=== PATIENT | female | born 1980 | race Caucasian/White ===

== ENCOUNTER 2018-10-16 02:35 | Emergency (ER) | payer OTHER ==
[2018-10-16] MEDS ORDERED: ONDANSETRON HCL INJ/PF 4 MG/2 ML SDV IV ONE (02:38)
[2018-10-16] MEDS ORDERED: NORMAL SALINE 1000 ML 1,000 ML IV ONE (02:39)
--- NOTE | 2018-10-16 02:41 | ER Document Report ---
ED General - General Stated Complaint: ETOH Time Seen by Provider: 10/16/18 02:38 Cannot obtain history due to: Intoxicated, Altered mental status Notes: Patient is a 38-year-old female with a past medical history of lupus per the report of EMS who presents due to altered mental status in the setting of drinking and using marijuana tonight. EMS reports that the patient has been responsive but has not provided any real clear coherent history or speech. Apparently the patient herself contacted 911 for her who then apparently was arrested for trying to prevent EMS from caring for the . At time of presentation the patient is lying in the gurney, not speaking. Past Medical History - General Information source: Emergency Med Personnel Cannot obtain history due to: Intoxicated, Altered mental status - Social History Smoking Status: Unknown if Ever Smoked Frequency of alcohol use: Occasional Drug Abuse: Marijuana Lives with: Spouse/Significant other Family History: Reviewed & Not Pertinent Review of Systems - Review of Systems -: Yes ROS unobtainable due to patient's medical condition Physical Exam - Vital signs Vitals: Temp Pulse Resp BP Pulse Ox 97.9 F 97 18 107/91 H 100 10/16/18 02:35 10/16/18 02:35 10/16/18 02:35 10/16/18 02:35 10/16/18 02:35 Interpretation: Normal Notes: PHYSICAL EXAMINATION: GENERAL: Anxious, intoxicated but in no acute distress HEAD: Atraumatic, normocephalic. EYES: Pupils equal round and reactive to light, extraocular movements intact, sclera anicteric, conjunctiva are normal. ENT: nares patent, oropharynx clear without exudates. Moist mucous membranes. NECK: Normal range of motion, supple without lymphadenopathy LUNGS: Breath sounds clear to auscultation bilaterally and equal. No wheezes rales or rhonchi. HEART: Regular rate and rhythm without murmurs ABDOMEN: Soft, nontender, normoactive bowel sounds. No guarding, no rebound. No masses appreciated. EXTREMITIES: Normal range of motion, no pitting or edema. No cyanosis. NEUROLOGICAL: No focal neurological deficits. Moves all extremities spontaneously and on command. PSYCH: Anxious, tearful, intoxicated SKIN: Warm, Dry, normal turgor, no rashes or lesions noted. Course - Re-evaluation Re-evalutation: 10/16/18 02:40 Patient presents intoxicated and under the influence of THC. Vitals within normal limits at the time of my assessment. Patient does not respond verbally but does follow commands. Will provide IV fluids, maintain on monitor, no indication for labs or imaging given known history of polysubstance abuse this evening and clinical picture consistent with acute intoxication on both alcohol and marijuana. 10/16/18 03:19 Patient is much more coherent, alert, oriented, repeatedly stating that she made a bad decision tonight by drinking too much and using marijuana at the same time. Vitals are within normal limits. No apparent risk for respiratory compromise as the patient is sitting up in bed and quite emotional at this time. The patient has ambulated and tolerated oral intake without difficulty. She will be discharged when there is a sober, safe ride for her home. - Vital Signs Vital signs: Temp Pulse Resp BP Pulse Ox 97.9 F 97 18 107/91 H 100 10/16/18 02:35 10/16/18 02:35 10/16/18 02:35 10/16/18 02:35 10/16/18 02:35 Discharge - Discharge Clinical Impression: Polysubstance abuse Alcohol intoxication Qualifiers: Complication of substance-induced condition: uncomplicated Qualified Code(s): F10.920 - Alcohol use, unspecified with intoxication, uncomplicated Marijuana intoxication Qualifiers: Complication of substance-induced condition: uncomplicated Qualified Code(s): F12.920 - Cannabis use, unspecified with intoxication, uncomplicated Condition: Fair Disposition: HOME, SELF-CARE Additional Instructions: You were seen in the emergency department today for being drunk and under the influence of marijuana. Please return to the emergency room immediately if you experience any concerning symptoms including high fevers, severe headache, chest pain, difficulty breathing, abdominal pain, slurred speech, numbness or weakness in your arms or legs, or any other symptom that concerns you.
[2018-10-16] MEDS ORDERED: LORAZEPAM INJ 2 MG/1 ML VIAL IV ONE (02:58)
[2018-10-16 08:09] VITALS: BP 129/75
--- NOTE | 2018-10-16 14:20 | EKG REPORT ---
SEVERITY:- BORDERLINE ECG - SINUS RHYTHM BORDERLINE PROLONGED QT INTERVAL : Confirmed by: Aruna Siddiqi MD 16-Oct-2018 14:19:08
== END 2018-10-16 08:36 | disposition home or self-care (01) ==
LOC: ER 02:35
DX: F10.120 Alcohol abuse with intoxication, uncomplicated (principal); F12.120 Cannabis abuse with intoxication, uncomplicated
CPT/HCPCS: 93005; 99284; 96361; 96374; 96375; 93010; J2060; J2405; J7030

== ENCOUNTER 2019-08-23 08:14 | Day surgery (SDC) | payer OTHER ==
[2019-08-23 08:43] LABS: INTERNATIONAL RATION (INR) 0.97; PROTHROMBIN TIME 12.9 SEC (11.4-15.4)
[2019-08-23 08:44] LABS: PARTIAL THROMBOPLASTIN TIME 27.2 SEC (23.5-35.8)
[2019-08-23 10:33] LABS: GLUCOSE,CSF 47 mg/dL (40-70); PROTEIN,CSF 86 mg/dL (12-60)
[2019-08-23 11:17] LABS: APPEARANCE ALL TUBES CLEAR; APPEARANCE TUBE 1 CLEAR; APPEARANCE TUBE 2 CLEAR; APPEARANCE TUBE 3 CLEAR; APPEARANCE TUBE 4 CLEAR; COLOR ALL TUBES COLORLESS; COLOR TUBE 1 COLORLESS; COLOR TUBE 2 COLORLESS; COLOR TUBE 3 COLORLESS; COLOR TUBE 4 COLORLESS; CSF TUBE NUMBER 3
[2019-08-23 11:18] LABS: RED BLOOD CELL,CSF 1 /uL (0-10); WHITE BLOOD CELL,CSF 2 /uL (0-5)
--- NOTE | 2019-08-23 11:21 | RADIOLOGY REPORT (SQ) ---
EXAM DESCRIPTION: LUMBAR PUNCTURE; FLUORO/NEEDLE PLACEMENT/SPINE COMPLETED DATE/TIME: 08/23/2019 9:52 am REASON FOR STUDY: MS COMPARISON: None. FLUOROSCOPY TIME: 12 seconds 1 Images saved to PACS. TECHNIQUE: Fluoroscopic guided lumbar puncture with opening and closing pressures. LIMITATIONS: None. PROCEDURE: After written consent and assessment were obtained, the patient was brought into the fluo roscopy room and placed prone on the table. The patient's lower back was prepped in a sterile fashion and an entry site was selected under live fluoroscopic guidance. The entry site was anesthetized wit h 1% lidocaine. A 22 gauge needle was advanced through the skin and into the thecal sac at the level of L3. An opening pressure of 19 units was obtained. After approximately 9 ml of CSF was drained, a c losing pressure of 12 units was obtained. The needle was removed and a sterile bandage was placed of the site. Specimens were sent to the lab for testing. A fluoroscopic spot image was saved to PACS con firming level access. FINDINGS: Clear CSF IMPRESSION: Lumbar puncture under fluoroscopy. No immediate complication. COMMENT: Patient medication list reviewed: Yes- Quality ID# [id number]:Eligible professional attests to doc umenting in the medical record they obtained, updated, or reviewed the patient's current medications. Quality ID 145: Final reports for procedures using fluoroscopy that document radiation exposure indic es, or exposure time and number of fluorographic images (if radiation exposure indices are not availa ble) TECHNICAL DOCUMENTATION: Job ID: [id number] [email or web address]- All Rights Reserved Reading location - IP/workstation name: [email or web address]
[2019-08-23 12:40] VITALS: BP 135/96
[2019-08-26 12:36] LABS: ALBUMIN CSF 41 mg/dL (11-48); ALBUMIN SERUM 4.6 g/dL (3.5-5.5); CSF IGG INDEX 0.5 (0.0-0.7); IGG SYNTHESIS RATE CSF 1.3 mg/day (-9.9 TO +3); IGG/ALBUMIN RATIO CSF 0.25 (0.00-0.25); IMMUNOGLOBULIN G CSF 10.3 mg/dL (0.0-8.6); IMMUNOGLOBULIN G SERUM 2148 mg/dL (700-1600)
[2019-08-26 13:30] LABS: CSF/SERUM ALBUMIN INDEX 9 (0-8)
== END 2019-08-23 11:45 | disposition home or self-care (01) ==
LOC: RAD 08:14
PROVIDERS: ATTEND Specialist
DX: G35 Multiple sclerosis (principal)
CPT/HCPCS: 36415; 62270; 77003; 82784; 82945; 83916; 84157; 85610; 85730; 87070; 87205; 89050